=== PATIENT | female | born 1975 | race Caucasian/White ===

== ENCOUNTER 2020-12-03 07:39 | Day surgery (SDC) | payer OTHER ==
[2020-12-02 10:19] VITALS: BMI 26.8
[~2020-12-03 07:39] MED LIST: DEXAMETHASONE SOD PHOSPHATE 4 MG/ML 1 ML VIAL IV ONE; DEXAMETHASONE SOD PHOSPHATE 4 MG/ML 1 ML VIAL IV PRN; FAMOTIDINE 20 MG/2 ML VIAL IV PRN; LACTATED RINGERS 1,000 ML IV SCH; LIDOCAINE 1% (10MG/ML) FOR IV START INTRADERMA PRN; MIDAZOLAM 2 MG/2 ML VIAL IV PRN; ONDANSETRON 4 MG/2 ML VIAL IVP ONE; ONDANSETRON 4 MG/2 ML VIAL IVP PRN; Pre Op ABX Message 1 EACH MISC MISCELLANE ONE
[2020-12-03] MEDS ORDERED: SCOPOLAMINE 1.5MG/72HR PATCH TRANSDERM ONE (08:44)
[2020-12-03] MEDS ORDERED: DEXAMETHASONE SOD PHOSPHATE 10 MG/ML 1 ML VIAL ONE (10:25)
[2020-12-03] MEDS ORDERED: LIDOCAINE 1% INJ 10MG/ML (20 ML MDV) ONE (10:25)
[2020-12-03] MEDS ORDERED: MIDAZOLAM 2 MG/2 ML VIAL ONE (10:25)
[2020-12-03] MEDS ORDERED: fentaNYL (PF) 50 MCG/ML 2 ML AMP ONE (10:25)
[2020-12-03] MEDS ORDERED: SUCCINYLCHOLINE CHLORIDE 100 MG/5 ML SYR IV ONE (10:25)
[2020-12-03] MEDS ORDERED: PROPOFOL 10 MG/ML 20 ML VIAL IV ONE (10:25)
[2020-12-03] MEDS ORDERED: LIDOCAINE 1%-EPI 1:100,000 20 ML VIAL SQ ONE (10:38)
[2020-12-03] MEDS ORDERED: BUPIVACAINE (PF) 0.25% 30 ML VIAL SQ ONE (10:38)
[2020-12-03] MEDS ORDERED: LACTATED RINGERS 1,000 ML IV ONE (11:01)
[2020-12-03 11:21] VITALS: TEMP 97.3
--- NOTE | 2020-12-03 11:26 | P.OP ---
Date of Procedure: 12/03/20 Preoperative Diagnosis: Chronic adenotonsillitis Postoperative Diagnosis: Same Procedure(s) Performed: Modified Coblation adenotonsillectomy Anesthesia: SERENAA Surgeon: Manuel Gibbs Estimated Blood Loss (ml): 10 Pathology: other (Tonsil) Condition: stable Disposition: PACU Indications for Procedure: This is a 45-year-old white female who has frequent throat abscesses. Adenotonsillectomy performed which was 10 years of age but has had tonsil tissue regrowth nose getting recurring infections of her tonsils. She's had multiple cases of tonsillitis this year alone and develops abscess formation. She been recently treated with Biaxin and now Augmentin with continued infectious issues. Large adenoids were also noted. Adenotonsillectomy was discussed and the patient requested this procedure. All risks, benefits, and alternative therapies were discussed. Risks of bleeding, infection, need for secondary surgery etc. etc. were explained. All questions were answered. Consent was obtained. Operative Findings: Patient had purulent material coming from the remnant tonsil tissues bilaterally with the left side being worse than the right. Adenoid tissues were also significant and large and obstructive Description of Procedure: Prior to surgery all risks, benefits, and alternative therapies were discussed in detail. Risks of bleeding, infection, need for secondary surgery, airway problems, anesthetic complications, etc. etc. were discussed in detail. Consent was obtained and all questions were answered. OPERATIVE PROCEDURE: This patient was taken to the operative room and placed in the supine position. A functioning IV line was in placed and the patient was monitored throughout the entire case by the department of anesthesia. The patient underwent general anesthetic with intubation and tube was secured. A McIvor mouth gag was placed into the patients mouth with care to avoid any trauma to the lips, teeth, gums or tongue. Mouth was opened and tongue was depressed. The tonsils were grasped with an Allis forceps and brought medially bilaterally. A subcapsular dissection was performed utilizing an Evac-70 handpiece with an Arthrotec setting of 7. The tonsils were removed without incident bilaterally and the tonsillar fossae were inspected and bleeding was nonexistent and stopped spontaneously with Coblation. A Marcaine and lidocaine mixture was injected into the peritonsillar area for anesthesia postoperatively. After the tonsillar fossae were reinspected and no bleeding was seen attention was then paid to the nasopharynx where a red rubber catheter was placed into the nose and out the mouth and used to retract the soft palate. With use of indirect mirror examination and the Coblation hand wand, the adenoid tissue was removed in that fashion again utilizing an Evac-70 handpiece with Arthrotec setting of 7. The adenoid tissues were removed and fulgurated. The patient tolerated this procedure well. The nasopharynx shows no signs of any bleeding. McIvor mouth gag and the red rubber catheter were removed. The stomach was suctioned and the patient was taken to postanesthesia recovery in excellent condition having tolerated this procedure well. The patient will follow up in the office in one week as scheduled.
[2020-12-03 11:34] VITALS: RESP 16
[2020-12-03] MEDS: HYDROmorphone 0.5 MG/0.5 ML SYRINGE IVP PRN ×2 (11:49→12:04)
[2020-12-03] MEDS ORDERED: ONDANSETRON 4 MG/2 ML VIAL ONE (11:52)
[2020-12-03] MEDS ORDERED: ONDANSETRON 4 MG/2 ML VIAL IVP ONE (11:53)
[2020-12-03] MEDS ORDERED: oxyCODONE-APAP 5-325MG 1 EACH TAB PO STA (13:03)
[2020-12-03] MEDS ORDERED: oxyCODONE-APAP 5-325MG 1 EACH TAB ONE (13:05)
[2020-12-03] MEDS ORDERED: oxyCODONE-APAP 5-325MG 1 EACH TAB PO ONE (13:09)
[2020-12-03 13:31] VITALS: BP 113/63; PULSE 90
== END 2020-12-03 13:46 | disposition home or self-care (01) ==
LOC: OR 07:39 → MERGE 10:40 → OR 13:46
PROVIDERS: ATTEND Otolaryngology
DX: J35.03 Chronic tonsillitis and adenoiditis (principal); F32.9 Major depressive disorder, single episode, unspecified; G43.909 Migraine, unspecified, not intractable, without status migrainosus; Z98.890 Other specified postprocedural states; Z82.5 Family history of asthma and other chronic lower respiratory diseases; Z81.8 Family history of other mental and behavioral disorders; Z82.49 Family history of ischemic heart disease and other diseases of the circulatory system; Z83.49 Family history of other endocrine, nutritional and metabolic diseases; Z79.899 Other long term (current) drug therapy; Z91.048 Other nonmedicinal substance allergy status; Z79.890 Hormone replacement therapy; Z88.5 Allergy status to narcotic agent
CPT/HCPCS: 81025; 88304; 42821; J2250; J1100 ×2; J2405; J0690; J2001; J3010; J0330; J2704; J1170

== ENCOUNTER 2020-12-04 01:35 | Emergency (ER) | payer OTHER ==
[2020-12-04 01:43] VITALS: RESP 16; TEMP 98.2
[2020-12-04] MEDS ORDERED: SODIUM CHLORIDE 0.9% 1,000 ML IV ONE (01:54)
[2020-12-04] MEDS ORDERED: diphenhydrAMINE 50 MG/ML 1 ML VIAL IVP STA (01:54)
[2020-12-04] MEDS ORDERED: METOCLOPRAMIDE 5 MG/ML 2 ML VIAL IVP STA (01:54)
[2020-12-04] MEDS ORDERED: KETOROLAC 15 MG/ML 1 ML VIAL IVP STA (01:54)
--- NOTE | 2020-12-04 03:05 | ED ---
General Adult HPI - General Chief complaint: Headache Stated complaint: Post-op headache Time Seen by Provider: 12/04/20 01:39 Source: patient, EMS Mode of arrival: EMS Limitations: no limitations - History of Present Illness Initial comments: 45 year-old female patient presents for evaluation of headache. States she had her tonsils removed earlier today with Dr. Gibbs. States that this afternoon she developed mild headache that gradually worsened. She states that she does have some light sensitivity. Reports some mild nausea. States she has been trying to eat and drink. She reports throat pain. Denies any bleeding. States that she does have history of migraines, but they are well controlled. She states this feels different. Patient denies any recent rash, fever, chills, cough, shortness of breath, chest pain, abdominal pain, vomiting, diarrhea, constipation, back pain, numbness, tingling, dizziness, weakness, hematuria, dysuria, urinary urgency, urinary frequency, or any other complaints. - Related Data Home Medications Medication Instructions Recorded Confirmed Multivitamin,Therapeutic [Thera] 1 tab PO DAILY 01/13/18 12/03/20 Cetirizine HCl [Zyrtec] 10 mg PO DAILY 12/09/18 12/03/20 Cyclobenzaprine [Flexeril] 5 mg PO HS PRN 12/09/18 12/03/20 Ajoby 225 mg IJ QMONTHLY 12/02/20 12/03/20 Amoxic-Pot Clav 875-125Mg 1 tab PO Q12HR 12/02/20 12/03/20 [Augmentin 875-125] FLUoxetine HCL [PROzac] 40 mg PO HS 12/02/20 12/03/20 Levothyroxine Sodium [Synthroid] 50 mcg PO DAILY 12/02/20 12/03/20 Rimegepant Sulfate [Nurtec Odt] 75 mg PO DAILY PRN 12/02/20 12/03/20 Previous Rx's Medication Instructions Recorded predniSONE 50 mg PO DAILY #5 tab 12/09/18 Allergies Allergy/AdvReac Type Severity Reaction Status Date / Time acetaminophen [From [place]] AdvReac headache Verified 12/04/20 01:43 hydrocodone [From [place]] AdvReac headache Verified 12/04/20 01:43 Review of Systems ROS Statement: Those systems with pertinent positive or pertinent negative responses have been documented in the HPI. ROS Other: All systems not noted in ROS Statement are negative. Past Medical History Additional Past Medical History / Comment(s): headaches History of Any Multi-Drug Resistant Organisms: None Reported Past Surgical History: Orthopedic Surgery, Tonsillectomy Additional Past Surgical History / Comment(s): laser ablation of cervix, R leg reconstruction, tonsillectomy Past Anesthesia/Blood Transfusion Reactions: No Reported Reaction Past Psychological History: Depression Smoking Status: Never smoker Past Alcohol Use History: None Reported Past Drug Use History: None Reported - Past Family History Mother Family Medical History: Cancer Father Family Medical History: Congestive Heart Failure (CHF), COPD General Exam Limitations: no limitations General appearance: alert, in no apparent distress, other (This well-developed, well-nourished adult female patient in no acute distress.) Eye exam: Present: normal appearance, PERRL, EOMI. Absent: scleral icterus, conjunctival injection, nystagmus, periorbital swelling ENT exam: Present: mucous membranes moist, other (tonsils absent bilaterally, white film over surgical sites. No bleedin noted.) Respiratory exam: Present: normal lung sounds bilaterally. Absent: respiratory distress, wheezes, rales, rhonchi, stridor Cardiovascular Exam: Present: regular rate, normal rhythm, normal heart sounds. Absent: systolic murmur, diastolic murmur, rubs, gallop, clicks GI/Abdominal exam: Present: soft, normal bowel sounds. Absent: distended, tenderness, guarding, rebound, rigid Neurological exam: Present: alert, oriented X3, CN II-XII intact Psychiatric exam: Present: normal affect, normal mood Skin exam: Present: warm, dry, intact, normal color. Absent: rash Course Vital Signs 12/04/20 12/04/20 01:38 02:43 Temperature 98.2 F Pulse Rate 91 78 Respiratory 16 16 Rate Blood Pressure 118/74 108/63 O2 Sat by Pulse 98 98 Oximetry Medical Decision Making - Medical Decision Making 45-year-old female patient presents to the emergency department today for evaluation of headache after having tonsillectomy this afternoon. Physical examination is unremarkable. She is neurologically intact with no focal deficits. Patient was given several medications. Upon reevaluation states her symptoms are family improved. She'll be given additional dose due to pain level remaining at a 6. She'll be discharged pop the primary care physician and Dr. Franz for further evaluation as soon as possible. Return parameters were discussed in detail. She verbalizes understanding and agrees with this plan. Case is discussed with my attending Dr. Rodriguez. Disposition Clinical Impression: Headache Disposition: HOME SELF-CARE Condition: Good Instructions (If sedation given, give patient instructions): Acute Headache (ED) Additional Instructions: Follow-up with the primary care physician for recheck in 1-2 days. Increase fluids. Rest. Return for any new, worsening, or concerning symptoms. Is patient prescribed a controlled substance at d/c from ED?: No Referrals: Jed Donnelly DO [Primary Care Provider] - 1-2 days Time of Disposition: 04:01
[2020-12-04] MEDS ORDERED: DEXAMETHASONE SOD PHOSPHATE 10 MG/ML 1 ML VIAL IVP STA (03:17)
[2020-12-04] MEDS ORDERED: HYDROmorphone 0.5 MG/0.5 ML SYRINGE IVP STA ×2 (03:17→04:00)
[2020-12-04 04:19] VITALS: BP 110/72; PULSE 68
== END 2020-12-04 04:19 | disposition home or self-care (01) ==
LOC: EC 01:35
DX: R51.9 Headache, unspecified (principal); F32.9 Major depressive disorder, single episode, unspecified; Z88.5 Allergy status to narcotic agent; Z88.1 Allergy status to other antibiotic agents; Z90.89 Acquired absence of other organs
CPT/HCPCS: 96361; 96374; 96375; 96376; 99284

== ENCOUNTER → 2021-01-20 | Outpatient (CLI) | payer OTHER ==
--- NOTE | 2021-01-20 10:36 | XR ---
EXAMINATION TYPE: XR chest 2V DATE OF EXAM: 01/20/2021 COMPARISON: 05/27/2019 TECHNIQUE: PA and lateral views submitted. HISTORY: Cough, FINDINGS: The lungs are clear and there is no pneumothorax, pleural effusion, or focal pneumonia. Heart size i s normal. No overt failure. A pectus excavatum deformity noted. IMPRESSION: 1. No acute process.
== END | disposition home or self-care (01) ==
LOC: RADXRYALE 09:50
PROVIDERS: ATTEND Physician Assistant Medical
DX: R05.9 Cough, unspecified (principal)
CPT/HCPCS: 71046

== ENCOUNTER → 2021-02-01 | Outpatient (CLI) | payer OTHER ==
--- NOTE | 2021-02-01 10:02 | CT ---
EXAMINATION TYPE: CT chest wo con DATE OF EXAM: 02/01/2021 COMPARISON: 01/14/2013 HISTORY: 45-year-old female R06.02 Shortness of breath, cough. R05.2. TECHNIQUE: Contiguous axial scanning of the chest without IV contrast. Coronal and sagittal reconstru ctions performed. CT DLP: 190.30 mGycm Automated exposure control for dose reduction was used. FINDINGS: Heart normal size without pericardial effusion. Aorta normal caliber with conventional branching anatomy. No thoracic lymphadenopathy identified allowing for noncontrast technique. 4 mm posterior right lower lobe pulmonary nodule, axial image 34, not seen previously. Some minimal s training areas of atelectasis in the lower lungs. No consolidation or pleural effusion. Visualized upper abdomen shows no gross abnormal body allowing for noncontrast technique. Bones: Mild pectus excavatum redemonstrated. Bilateral breast implants. IMPRESSION: 1. SOME MINIMAL STRANDY ATELECTASIS IN THE LOWER LUNGS. NO FOCAL INFILTRATE. 2. A 4 MM RIGHT LOWER LOBE PULMONARY NODULE, NOT CLEARLY SEEN PREVIOUSLY. 6-12 MONTH FOLLOW-UP CT TO REASSESS.
== END | disposition home or self-care (01) ==
LOC: RADCTMAIN 06:57
PROVIDERS: ATTEND Family Medicine
DX: J98.11 Atelectasis (principal); R91.1 Solitary pulmonary nodule
CPT/HCPCS: 71250

== ENCOUNTER → 2021-06-03 | Outpatient (CLI) | payer OTHER ==
--- NOTE | 2021-06-04 08:26 | CT ---
EXAMINATION TYPE: CT soft tissue neck w con DATE OF EXAM: 06/03/2021 6:21 PM COMPARISON: CT neck 14 January 2018 HISTORY: swollen lymph node and fatigue CT DLP: 309.90 mGycm Automated exposure control for dose reduction was used. CONTRAST: CT scan of the neck is performed following with IV Contrast, patient injected with 100 mL of Isovue 3 00. Axial images are obtained, coronal and sagittal reformatted images are reviewed. FINDINGS: Lung apices are unremarkable. Level the true and false cords are normal, skull base is unre markable. Airway: No gross abnormality seen. Parotid/submandibular glands: No gross abnormality seen. Carotid/Vascular Structures: Patent and unremarkable. Left vertebral artery is dominant. Osseous Structures: Stable, unremarkable Other: No significant adenopathy. IMPRESSION: No significant interval change. No suspicious abnormalities evident
== END | disposition home or self-care (01) ==
LOC: RADCTMAIN 17:42
PROVIDERS: ATTEND Family Medicine
DX: R53.83 Other fatigue (principal); R59.9 Enlarged lymph nodes, unspecified
CPT/HCPCS: 70491; Q9967

== ENCOUNTER → 2021-08-09 | Outpatient (CLI) | payer OTHER ==
--- NOTE | 2021-08-09 09:40 | CT ---
EXAMINATION TYPE: CT chest w con DATE OF EXAM: 08/09/2021 COMPARISON: CT dated 02/01/2021 HISTORY: Pulmonary nodules CT DLP: 158.3 mGycm Automated exposure control for dose reduction was used. TECHNIQUE: CT scan of the chest is performed with IV Contrast, patient injected with 70 mL of Isovue 300. FINDINGS: LUNGS: Grossly stable 4 mm nodule at the posterior aspect of the right lower lobe (image #35, series 4). It demonstrates a slightly irregular margin. Minimal pleural-based atelectasis seen at the critical care technician ior aspect of the right lower lobe. Patent trachea and main bronchi. No pleural effusion. MEDIASTINUM: There are no greater than 1 cm hilar or mediastinal lymph nodes. No gross cardiomegaly. No pericardial effusion is seen. OTHER: Bilateral breast prosthesis. 10 mm partially hyperenhancing lesion in the right hepatic lobe, segment 7, possibly representing a hemangioma, for further ultrasound assessment. Significant fecal loading of the visualized portion of the colon. No aggressive bone lesion. IMPRESSION: Stable 4 mm slightly irregular nodule at the posterior aspect of the right lower lobe as described ab ove. A final follow-up CT scan by January 2022 is advised. Other incidental findings and recommendat ions as described above.
== END | disposition home or self-care (01) ==
LOC: RADCTMAIN 08:41
PROVIDERS: ATTEND Internal Medicine Critical Care Medicine
DX: R91.1 Solitary pulmonary nodule (principal); J98.11 Atelectasis
CPT/HCPCS: 71260; Q9967

== ENCOUNTER → 2021-09-02 | Outpatient (CLI) | payer OTHER ==
--- NOTE | 2021-09-02 07:49 | US ---
EXAMINATION TYPE: US liver DATE OF EXAM: 09/02/2021 COMPARISON: Correlation CT chest 08/09/2021 CLINICAL HISTORY: 46-year-old female D18.03 HEMANGIOMA OF LIVER. TECHNIQUE: Multiple sonographic images of the right upper quadrant are obtained. FINDINGS: EXAM MEASUREMENTS: Liver Length: 16.0 cm Gallbladder Wall: 0.24 cm CBD: 0.39 cm Right Kidney: 10.9 x 5.4 x 4.0 cm Transportation Maintenance Supervisor notes: Limited due to gas. Pancreas: Most of the pancreas is seen and shows no gross abnormal body. Liver: Overall homogeneous appearance. There is a vague echogenic area measuring 1.2 x 1.0 x 0.8 cm w ithin the right liver lobe. Unclear if this corresponds to the right hepatic dome lesion seen on CT. A 6 month follow-up ultrasound can reassess. Gallbladder: Minimal internal echoes seen, shown by arrow, probable minimal sludge. Evidence for sonographic Rosales's sign: No CBD: Appears wnl Right Kidney: No hydronephrosis or masses seen IMPRESSION: 1. A vague 1.2 cm echogenic area within the right liver lobe probably represents a small hemangioma. Unclear if this corresponds to the finding at the right hepatic dome on recent CT. 6 month follow-up ultrasound can reassess this lesion as well as the remainder of the liver. 2. No gallstones or biliary ductal dilatation.
== END | disposition home or self-care (01) ==
LOC: RADUSWWP 06:54
PROVIDERS: ATTEND Internal Medicine Critical Care Medicine
DX: D18.03 Hemangioma of intra-abdominal structures (principal)
CPT/HCPCS: 76705

== ENCOUNTER → 2022-01-20 | Outpatient (CLI) | payer OTHER ==
--- NOTE | 2022-01-20 10:33 | CT ---
EXAMINATION TYPE: CT chest w con DATE OF EXAM: 01/20/2022 COMPARISON: 08/09/2021 HISTORY: Follow up for pulmonary nodule. CT DLP: 197.2 mGycm Automated exposure control for dose reduction was used. TECHNIQUE: CT scan of the chest is performed with IV Contrast, patient injected with 70ml mL of Isovue 300. MIP Images are created on CT scanner and reviewed. 3D reconstructed images are created on an independent workstation and reviewed. FINDINGS: LUNGS: The lungs are grossly clear, there is no concerning consolidation identified. There is no pl eural effusion or pneumothorax seen. The tracheobronchial tree is patent. A 4 mm nodule superior seg ment right lower lobe. MEDIASTINUM: There are no greater than 1 cm hilar or mediastinal lymph nodes. No pericardial effusi on is seen. Heart size normal. Aorta of normal caliber. OTHER: Tiny nodule in the dome of the liver too small to characterize but stable from prior exam. Po ssibly related to hemangioma. Bilateral breast prostheses noted. IMPRESSION: 1. Stable 4 mm nodule right lower lobe unchanged from prior exam. Has a benign appearance. Six-month follow-up is recommended to confirm stability over the course of a 2 year period.
== END | disposition home or self-care (01) ==
LOC: RADCTMAIN 09:46
PROVIDERS: ATTEND Internal Medicine Critical Care Medicine
DX: R91.1 Solitary pulmonary nodule (principal)
CPT/HCPCS: 71260; Q9967

== ENCOUNTER → 2022-02-14 | Outpatient (CLI) | payer BC ==
--- NOTE | 2022-02-14 09:34 | US ---
EXAMINATION TYPE: US liver DATE OF EXAM: 02/14/2022 COMPARISON: NONE CLINICAL HISTORY: D18.03 HEMANGIOMA OF INTRA-ABDOMINAL STRUCTURES. small hemangioma seen on previous CT, don't believe area measured in previous US was accurate, no symptoms TECHNIQUE: Multiple sonographic images of the right upper quadrant are obtained. FINDINGS: EXAM MEASUREMENTS: Liver Length: 15.1 cm Gallbladder Wall: 0.2 cm CBD: 0.3 cm Right Kidney: 10.5 x 5.4 x 4.6 cm Pancreas: wnl Liver: 1.6 x 0.6 x 1.3cm probable hemangioma seen at dome adjacent to diaphragm Gallbladder: wnl Evidence for sonographic Rosales's sign: no CBD: wnl Right Kidney: wnl IMPRESSION: 1. No evidence for acute process. 2. Small hyperechoic focus on liver measuring up to 1.6 cm. This was seen on prior CT on 08/09/2021 a nd likely represents hemangioma. If clinically warranted a CT or MRI liver mass protocol with IV cont rast could provide further characterization.
== END | disposition home or self-care (01) ==
LOC: RADUSWWP 07:52
PROVIDERS: ATTEND Internal Medicine Critical Care Medicine
DX: D18.03 Hemangioma of intra-abdominal structures (principal); K76.89 Other specified diseases of liver
CPT/HCPCS: 76705

== ENCOUNTER → 2023-01-11 | Outpatient (CLI) | payer BC ==
--- NOTE | 2023-01-11 10:31 | CT ---
EXAMINATION TYPE: CT chest w con DATE OF EXAM: 01/11/2023 COMPARISON: 01/20/2022, 08/09/2021, 02/01/2021. HISTORY: Lung nodule follow-up. CT DLP: 192.4 mGycm Automated exposure control for dose reduction was used. TECHNIQUE: CT scan of the chest is performed with IV Contrast, patient injected with 100 mL of Isovue 300. MIP Images are created on CT scanner and reviewed. 3D reconstructed images are created on an independent workstation and reviewed. FINDINGS: CHEST WALL: There are bilateral breast implants. Mediastinum and Christine: There is no axillary, mediastinal or hilar lymphadenopathy. Pleural and Pericardial spaces: There are no pleural or pericardial effusions. Upper Abdomen: The visualized upper abdomen is unremarkable. Cardiovascular: The thoracic aorta is normal in size without evidence of aneurysm or dissection. Pulmonary Artery: There are no central pulmonary arterial abnormalities. The examination was not per formed to evaluate for pulmonary embolism. Lung Parenchyma and Airways: 4 mm nodule in the right lower lobe on series 4 image 35 is unchanged. L ungs otherwise appear clear. No new or enlarging nodules are seen. Bones: No fracture or aggressive osseous lesion. IMPRESSION: 1. Unchanged pulmonary nodule dating back to at least 02/01/2021. No further follow-up is recommended at this time. 2. No acute findings.
== END | disposition home or self-care (01) ==
LOC: RADCTMAIN 08:53
PROVIDERS: ATTEND Internal Medicine Critical Care Medicine
DX: R91.1 Solitary pulmonary nodule (principal)
CPT/HCPCS: 71260; Q9967

== ENCOUNTER → 2023-04-12 | Outpatient (CLI) | payer BC ==
--- NOTE | 2023-04-13 10:03 | US ---
EXAMINATION TYPE: US abdomen limited DATE OF EXAM: 04/12/2023 COMPARISON: NONE CLINICAL INDICATION: Female, 48 years old with history of R93.2 ABNORMAL FINDINGS ON DX IMAGING OF LI MITALI AND; h/o hemangioma TECHNIQUE: Multiple sonographic images of the right upper quadrant are obtained. FINDINGS: EXAM MEASUREMENTS: Liver Length: 14.8 cm Gallbladder Wall: 0.2 cm CBD: 0.5 cm Right Kidney: 11.0 x 4.7 x 4.9 cm Pancreas: wnl Liver: 1.6 x 1.7 x 1.4cm subtlely hyperechoic lesion seen right anterior dome. This appears to be p resent on the 01/11/[address] This is difficult to confirm matching the prior exam but appe ars to be previously identified. Gallbladder: wnl Evidence for sonographic Rosales's sign: no CBD: wnl Right Kidney: wnl IMPRESSION: 1. Suspected small hemangiomas within the liver. Continued monitoring with ultrasound is recommended
== END | disposition home or self-care (01) ==
LOC: RADUSWWP 07:18
PROVIDERS: ATTEND Family Medicine
DX: R93.2 Abnormal findings on diagnostic imaging of liver and biliary tract (principal)
CPT/HCPCS: 76705

== ENCOUNTER → 2023-04-18 | Outpatient (CLI) | payer BC ==
--- NOTE | 2023-04-21 08:42 | MM ---
Reason for Exam: Screening (asymptomatic). Last mammogram was performed 2 year(s) and 6 month(s) ago. Patient History: Menarche at age 14. First Full-Term at age 40. Late child-bearing (after 30). Patient has history of breast feeding. 07/28/2020, Bilateral Implants. Last menstrual period: 04/06/2023 Risk Values: Carine 5 year model risk: 1.2%. NCI Lifetime model risk: 12.8%. Prior Study Comparison: 07/30/2019 Bilateral Screening Mammogram, [facility], [place]. 11/05/2020 Bilateral Screening Mammogram, [facility], [place]. Tissue Density: The breasts are heterogeneously dense, which may obscure small masses. Findings: Analyzed By CAD. There is no suspicious group of microcalcifications or new suspicious mass in either breast. Implants are intact. Overall Assessment: Benign, BI-RAD 2 Management: Screening Mammogram of both breasts in 1 year. . Patient should continue monthly self-breast exams. A clinical breast exam by your physician is recommended on an annual basis. This exam should not preclude additional follow-up of suspicious palpable abnormalities. Note on Carine scores and lifetime risk: 1. A Carine score greater than 3% is considered moderate risk. If this is the case, consider specialist referral to assess eligibility for a risk reducing agent. 2. If overall lifetime risk for the development of breast cancer is 20% or higher, the patient may qualify for future screening with alternating mammogram and breast MRI. Electronically signed and approved by: Tim Mendiola M.D. Radiologis
== END | disposition home or self-care (01) ==
LOC: RADMAMWWP 10:37
PROVIDERS: ATTEND Family Medicine
DX: Z12.31 Encounter for screening mammogram for malignant neoplasm of breast (principal); Z98.82 Breast implant status
CPT/HCPCS: 77063; 77067

== ENCOUNTER 2024-01-06 18:23 | Emergency (ER) | payer BC ==
[2024-01-06 18:29] VITALS: TEMP 98.1
[2024-01-06] MEDS: TETRACAINE 0.5% OPHTH (PF) DROPS 4 ML BTL LEFT EYE STA (19:10)
[2024-01-06] MEDS: FLUORESCEIN STRIPS 1 MG STRIP LEFT EYE ONE (19:10)
--- NOTE | 2024-01-06 19:36 | ED ---
Eye Problem HPI - General Chief complaint: Eye Problems Stated complaint: L eye issue Time Seen by Provider: 01/06/24 18:36 Source: patient, RN notes reviewed Mode of arrival: wheelchair Limitations: no limitations - History of Present Illness Initial comments: This is a 48-year-old female presenting with left eye pain (11/22) x 1 day. Patient states she excellently got eyelid lash glue into her left eye around 9 AM this morning. Endorses going to urgent care where tetanus vaccination was given eye was flushed, pH was checked and poison control was contacted. Patient states she was prescribed antibiotic eyedrops but continued having eye pain, prompting her to go to the ER for further evaluation and treatment. Patient endorses burning pain and blurred vision. Denies pain in contralateral eye, restricted range of movement, discharge. MD chief complaint: eye pain, eye redness, vision change Onset/Timin -: hour(s) Onset Description: sudden Location: left eye Place: home If Injury: chemical exposure Eye Symptoms: burning, redness, pain, foreign body sensation, blurry vision Severity scale (1-10): 10 If Pain, Quality: burning Consistency: constant Associated Symptoms: none Treatments Prior to Arrival: irrigated eye, removed contact lens - Related Data Home Medications Medication Instructions Recorded Confirmed Multivitamin,Therapeutic [Thera] 1 tab PO DAILY 01/13/18 12/03/20 Cetirizine HCl [Zyrtec] 10 mg PO DAILY 12/09/18 12/03/20 Cyclobenzaprine [Flexeril] 5 mg PO HS PRN 12/09/18 12/03/20 Ajoby 225 mg IJ QMONTHLY 12/02/20 12/03/20 Amoxic-Pot Clav 875-125Mg 1 tab PO Q12HR 12/02/20 12/03/20 [Augmentin 875-125] FLUoxetine HCL [PROzac] 40 mg PO HS 12/02/20 12/03/20 Levothyroxine Sodium [Synthroid] 50 mcg PO DAILY 12/02/20 12/03/20 Rimegepant Sulfate [Nurtec Odt] 75 mg PO DAILY PRN 12/02/20 12/03/20 Previous Rx's Medication Instructions Recorded predniSONE 50 mg PO DAILY #5 tab 12/09/18 Erythromycin Ophth Oint [Romycin 1 applic LEFT EYE QID #15 gm 01/06/24 Ophth Oint] Allergies Allergy/AdvReac Type Severity Reaction Status Date / Time acetaminophen [From [place]] AdvReac headache Verified 01/06/24 18:25 hydrocodone [From [place]] AdvReac headache Verified 01/06/24 18:25 Review of Systems ROS Statement: Those systems with pertinent positive or pertinent negative responses have been documented in the HPI. ROS Other: All systems not noted in ROS Statement are negative. Past Medical History Additional Past Medical History / Comment(s): headaches History of Any Multi-Drug Resistant Organisms: None Reported Past Surgical History: Orthopedic Surgery, Tonsillectomy Additional Past Surgical History / Comment(s): laser ablation of cervix, R leg reconstruction, tonsillectomy Past Anesthesia/Blood Transfusion Reactions: No Reported Reaction Past Psychological History: Depression Smoking Status: Never smoker Past Alcohol Use History: None Reported Past Drug Use History: None Reported - Past Family History Mother Family Medical History: Cancer Father Family Medical History: Congestive Heart Failure (CHF), COPD General Exam Limitations: no limitations General appearance: alert, in no apparent distress Head exam: Present: atraumatic, normocephalic, normal inspection Eye exam: Present: PERRL, EOMI, conjunctival injection, other (Low obvious foreign body detected over conjunctival or under eyelids. Carson lamp reveals thin layer of eyelash glue covering superior iris and majority of cornea. Unable to remove glue with cotton swab.). Absent: scleral icterus, periorbital swelling, periorbital tenderness Pupils: Present: normal accommodation ENT exam: Present: normal exam, mucous membranes moist Neck exam: Present: normal inspection. Absent: tenderness, meningismus, lymphadenopathy Respiratory exam: Present: normal lung sounds bilaterally. Absent: respiratory distress, wheezes, rales, rhonchi, stridor Cardiovascular Exam: Present: regular rate, normal rhythm, normal heart sounds. Absent: systolic murmur, diastolic murmur, rubs, gallop, clicks GI/Abdominal exam: Present: soft, normal bowel sounds. Absent: distended, tenderness, guarding, rebound, rigid Extremities exam: Present: normal inspection, full ROM, normal capillary refill. Absent: tenderness, pedal edema, joint swelling, calf tenderness Back exam: Present: normal inspection Neurological exam: Present: alert, oriented X3, CN II-XII intact Psychiatric exam: Present: normal affect, normal mood Skin exam: Present: warm, dry, intact, normal color. Absent: rash Course Vital Signs 01/06/24 18:25 Temperature 98.1 F Pulse Rate 96 Respiratory 18 Rate Blood Pressure 144/92 O2 Sat by Pulse 100 Oximetry Medical Decision Making - Medical Decision Making Was pt. sent in by a medical professional or institution (, SARBJIT, DENTAL EQUIPMENT INSTALLER AND SERVICER, urgent care, hospital, or [facility]...) When possible be specific @ -No Did you speak to anyone other than the patient for history (EMS, parent, family, police, friend...)? What history was obtained from this source @ -No Did you review nursing and triage notes (agree or disagree)? Why? @ -I reviewed and agree with nursing and triage notes Were old charts reviewed (outside hosp., previous admission, EMS record, old EKG, old radiological studies, urgent care reports/EKG's, [facility] records)? Report findings @ -No old charts were reviewed Differential Diagnosis (chest pain, altered mental status, abdominal pain women, abdominal pain men, vaginal bleeding, weakness, fever, dyspnea, syncope, headache, dizziness, GI bleed, back pain, seizure, CVA, palpatations, mental health, musculoskeletal)? @ -Foreign body in eye, chemical exposure, conjunctivitis, corneal abrasion, episcleritis, iritis, acute glaucoma, this is not an exhaustive list EKG interpreted by me (3pts min.). @ -Not done X-rays interpreted by me (1pt min.). @ -None done CT interpreted by me (1pt min.). @ -None done U/S interpreted by me (1pt. min.). @ -None done What testing was considered but not performed or refused? (CT, X-rays, U/S, labs)? Why? @ -None What meds were considered but not given or refused? Why? @ -None Did you discuss the management of the patient with other professionals (professionals i.e. SARBJIT Bradford, DENTAL EQUIPMENT INSTALLER AND SERVICER, lab, RT, psych nurse, social service director, actimize architect, teacher, dog license officer supervisor, egg caser)? Give summary @ -No Was smoking cessation discussed for >3mins.? @ -No Was critical care preformed (if so, how long)? @ -No Were there social determinants of health that impacted care today? How? (Homelessness, low income, unemployed, alcoholism, drug addiction, transportation, low edu. Level, literacy, decrease access to med. care, usp, rehab)? @ -No Was there de-escalation of care discussed even if they declined (Discuss DNR or withdrawal of care, Hospice)? DNR status @ -No What co-morbidities impacted this encounter? (DM, HTN, Smoking, COPD, CAD, Cancer, CVA, ARF, Chemo, Hep., AIDS, mental health diagnosis, sleep apnea, morbid obesity)? @ -None Was patient admitted / discharged? Hospital course, mention meds given and route, prescriptions, significant lab abnormalities, going to OR and other pertinent info. @ -Examination under Carson lamp reveals adhered glue over cornea. Attempted removal with cotton swab without success. Attempted warm compress application and copious flushing of left eye with sterile water. Patient states pain persist and glue remains adhered to cornea. On-call ophthalmology currently unavailable. Advised patient regular eye flushing and warm compress application up to 4 times daily. Advised follow-up with ophthalmology on Monday. Erythromycin ointment sent to pharmacy. IM Toradol given for pain prior to discharge Undiagnosed new problem with uncertain prognosis? @ -No Drug Therapy requiring intensive monitoring for toxicity (Heparin, Nitro, Insulin, Cardizem)? @ -No Were any procedures done? @ -No Diagnosis/symptom? @ -Cyanoacrylate exposure of eye Acute, or Chronic, or Acute on Chronic? @ -Acute Uncomplicated (without systemic symptoms) or Complicated (systemic symptoms)? @ -Uncomplicated Side effects of treatment? @ -No Exacerbation, Progression, or Severe Exacerbation? @ -No Poses a threat to life or bodily function? How? (Chest pain, [place], [place], pneumonia, PE, COPD, DKA, ARF, appy, cholecystitis, CVA, Diverticulitis, Homicidal, Suicidal, threat to staff... and all critical care pts) @ -Chemical exposure to eye possibly causing change/loss of vision Disposition Clinical Impression: Foreign body of cornea Disposition: HOME SELF-CARE Condition: Good Instructions (If sedation given, give patient instructions): Eye Foreign Body (ED) Prescriptions: Erythromycin Ophth Oint [Romycin Ophth Oint] 1 applic LEFT EYE QID #15 gm Is patient prescribed a controlled substance at d/c from ED?: No Referrals: Tee,Ann-Marie, DO [Primary Care Provider] - 1-2 days Time of Disposition: 20:18
[2024-01-06] MEDS: SODIUM CHLORIDE 0.9% IRRIGATION STA (19:59)
[2024-01-06] MEDS: KETOROLAC 15 MG/ML 1 ML VIAL IM STA (20:22)
[2024-01-06 20:31] VITALS: BP 131/84; PULSE 78; RESP 20
== END 2024-01-06 20:31 | disposition home or self-care (01) ==
LOC: EC 18:23
DX: T15.02XA Foreign body in cornea, left eye, initial encounter (principal); Z77.098 Contact with and (suspected) exposure to other hazardous, chiefly nonmedicinal, chemicals; Z88.6 Allergy status to analgesic agent; Z88.5 Allergy status to narcotic agent
CPT/HCPCS: 99283 ×2; 96372 ×2; J1885

== ENCOUNTER → 2024-02-02 | Outpatient (CLI) | payer BC ==
--- NOTE | 2024-02-02 10:28 | CT ---
EXAMINATION TYPE: CT sinus wo/w con DATE OF EXAM: 02/02/2024 9:05 AM COMPARISON: None. CLINICAL INDICATION: Female, 48 years old with history of J32.9 CHRONIC SINUSITIS, UNSPECIFIED; , Chr onic sinusitis TECHNIQUE: Multiple thin axial images were obtained through the paranasal sinuses without the use of IV contrast. Additional coronal and sagittal reformatted images were submitted for evaluation. Contrast used:100 none Oral contrast used: none CT DLP: 1218.8 mGycm, Automated exposure control for dose reduction was used. FINDINGS: Frontal sinuses: Normally developed and aerated. Frontal Recess: Clear Maxillary Sinuses: Normally developed and aerated. Maxillary Infundibula([facility]): Clear, No Pranay cells identified. Ethmoid sinuses: Normally developed and aerated. Ethmoidal notch: Protected and abutting the lateral lamina. Sphenoid sinuses: Normally developed and aerated. There is sphenoid sinus pneumatization without evid ence of dehiscence. No dehiscence of carotid canal. No evidence of optic nerve dehiscence within the sphenoid sinus. Sphenoethmoidal recesses: Clear. Nasal septum: Within normal limits.. Nasal septum is slightly deviated rightward. Nasal Turbinates: Mild mucosal thickening most pronounced in the inferior turbinates left greater roney n right. Mastoid air cells & middle ears: The air cells are clear. The middle ears are grossly unremarkable. Modified Soft tissues & Brain: Partially seen without gross abnormality. Globes are intact. Other: Cribriform plate demonstrates symmetric Keros classification type 2 cribriform plate. No evidence of bony dehiscence of skull base. Lamina papyracea is intact without evidence of remote orbital fracture or orbital prolapse into the e thmoid sinus. IMPRESSION: 1. No significant mucosal sinus disease. 2. The ostiomeatal units, frontonasal and sphenoethmoidal recesses are clear. [facility], , 02/02/2024 10:25 AM
== END | disposition home or self-care (01) ==
LOC: RADCTMAIN 08:38
PROVIDERS: ATTEND Family Medicine
DX: J32.9 Chronic sinusitis, unspecified (principal)
CPT/HCPCS: 70488; Q9967

== ENCOUNTER → 2024-05-09 | Outpatient (CLI) | payer BC ==
--- NOTE | 2024-05-09 08:30 | US ---
EXAMINATION TYPE: US abdomen limited DATE OF EXAM: 05/09/2024 COMPARISON: NONE CLINICAL INDICATION: Female, 49 years old with history of R93.2 ABNORMAL FINDINGS ON DX IMAGING OF LI MITALI AND; Follow up to previous. TECHNIQUE: Grayscale and color Doppler imaging of the right upper quadrant was performed. FINDINGS: EXAM MEASUREMENTS: Liver Length: 14.8 Gallbladder Wall: .1cm CBD: .4 cm Right Kidney: 10.8 x 3.8 x 4.7 cm DIRECTOR OF SLEEP NOTES: Pancreas: wnl Liver: Area seen on previous not seen on today's study. Gallbladder: No stones seen Evidence for sonographic Rosales's sign: No CBD: wnl Right Kidney: No hydronephrosis or masses seen The pancreas is within normal limits. Previously seen hyperechoic hepatic lesion is not visualized on today's study. No gallstones, wall thickening or surrounding fluid. Negative sonographic Rosales sign . Common bile duct is within normal limits. Right kidney demonstrates no hydronephrosis, solid mass, or shadowing calculus. IMPRESSION: 1. No ultrasound evidence for acute process. 2. Previously seen hyperechoic hepatic lesion is not visualized on today's study. [facility], , 05/09/2024 8:27 AM
== END | disposition home or self-care (01) ==
LOC: RADUSWWP 07:48
PROVIDERS: ATTEND Family Medicine
DX: R93.2 Abnormal findings on diagnostic imaging of liver and biliary tract (principal)
CPT/HCPCS: 76705

== ENCOUNTER → 2024-06-27 | Outpatient (CLI) | payer BC ==
--- NOTE | 2024-06-27 14:07 | MM ---
Reason for Exam: Screening (asymptomatic). Last mammogram was performed 1 year(s) and 2 month(s) ago. Patient History: Menarche at age 14. First Full-Term at age 40. Late child-bearing (after 30). Patient has history of breast feeding. 07/28/2020, Bilateral Implants. Risk Values: Carine 5 year model risk: 1.2%. NCI Lifetime model risk: 12.7%. Prior Study Comparison: 07/30/2019 Bilateral Screening Mammogram, [facility], [place]. 11/05/2020 Bilateral Screening Mammogram, [facility], [place]. 04/18/2023 Bilateral MG 3D screen mammo imp/cad., [facility]. Tissue Density: The breasts are heterogeneously dense, which may obscure small masses. Findings: Analyzed By CAD. Bilateral subglandular implants are redemonstrated. There is no suspicious group of microcalcifications or new suspicious mass in either breast. Overall Assessment: Negative, BI-RAD 1 Management: Screening Mammogram of both breasts in 1 year. . Patient should continue monthly self-breast exams. A clinical breast exam by your physician is recommended on an annual basis. This exam should not preclude additional follow-up of suspicious palpable abnormalities. Note on Carine scores and lifetime risk: 1. A Carine score greater than 3% is considered moderate risk. If this is the case, consider specialist referral to assess eligibility for a risk reducing agent. 2. If overall lifetime risk for the development of breast cancer is 20% or higher, the patient may qualify for future screening with alternating mammogram and breast MRI. [facility], , 06/27/2024 2:05 PM. Electronically signed and approved by: Sam Moore M.D.
== END | disposition home or self-care (01) ==
LOC: RADMAMWWP 13:01
PROVIDERS: ATTEND Family Medicine
DX: Z12.31 Encounter for screening mammogram for malignant neoplasm of breast (principal); R92.333 Mammographic heterogeneous density, bilateral breasts; Z98.82 Breast implant status
CPT/HCPCS: 77063; 77067